=== PATIENT | male | born 1945 | race Two or more races ===

== ENCOUNTER 2017-06-03 18:32 | Inpatient (IN) | payer OTHER ==
[~2017-06-03] VITALS: Ht 172.7 cm; Wt 78.6 kg
[2017-06-03] MEDS ORDERED: ACETAMINOPHEN 500 MG TAB PO ONE (18:45)
[2017-06-03 19:31] LABS: Albumin 3.6 g/dL (3.4-5.0); Anion Gap 8 (5-15); BUN/Creatinine Ratio 12.1; Blood Urea Nitrogen 26 mg/dL (7-18); Calcium 8.2 mg/dL (8.5-10.1); Carbon Dioxide 20 mmol/L (21-32); Chloride 109 mmol/L (98-107); GFR African American 39 mL/min; GFR Non-African American 33 mL/min; Glucose 291 mg/dL (74-106); Potassium 3.9 mmol/L (3.5-5.1); Sodium 137 mmol/L (136-145)
[2017-06-03 19:34] LABS: Basophils # (auto) 0 uL; Basophils % (auto) 0.5 % (0.0-2.0); Eosinophils # (auto) 0.1 uL; Eosinophils % (auto) 1.4 % (0.0-7.0); Hematocrit 47.6 % (41.0-53.0); Lymphocytes # (auto) 0.6 uL; Lymphocytes % (auto) 9.5 % (10.0-50.0); Mean Corpuscular Hemoglobin 31.1 pg (28.0-32.0); Mean Corpuscular Hgb Conc. 33.6 g/dL (32.0-36.0); Mean Corpuscular Volume 92.5 fL (80.0-100.0); Monocytes # (auto) 0.8 uL; Monocytes % (auto) 11.3 % (0.0-12.0); Neutrophils # (auto) 5.2 uL; Neutrophils % (auto) 77.3 % (37.0-80.0); Nucleated Red Blood Cells % 0.1 %; Platelet Count (auto) 154 10^3/uL (140-450); Red Blood Cells 5.15 10^6/uL (4.5-5.90); White Blood Cell 6.7 10^3/uL (4.4-10.8)
[2017-06-03 19:44] LABS: Alanine Aminotransferase 57 U/L (16-61); Alkaline Phosphatase 154 U/L (45-117); Aspartate Aminotransferase 29 U/L (15-37); Bilirubin, Total 0.7 mg/dL (0.2-1.0); Total Protein 7.2 g/dL (6.4-8.2)
[2017-06-03] MEDS ORDERED: SODIUM CHLORIDE 0.9% 1,000 ML IV ONE ×2 (20:24)
[2017-06-03 21:16] LABS: Urine Bacteria NONE SEEN /hpf (None Seen); Urine Blood 1+ /uL (Negative); Urine Mucus FEW (None Seen); Urine Specific Gravity 1.027 (1.001-1.035); Urine WBC 5 /hpf (0 - 3)
[2017-06-04] MEDS ORDERED: IBUPROFEN 600 MG TAB PO ONE (00:15)
[2017-06-04] MEDS ORDERED: SODIUM CHLORIDE 0.9% 1,000 ML IV SCH (00:21)
[2017-06-04] MEDS ORDERED: MORPHINE SULFATE 4 MG/ML SYR/VIAL IV PRN (00:30)
[2017-06-04] MEDS ORDERED: DEXTROSE (50%) 50ML SYRG IV PRN (00:30)
[2017-06-04] MEDS ORDERED: OSELTAMIVIR 75 MG CAP PO ONE (00:30)
[2017-06-04] MEDS ORDERED: ONDANSETRON HCL 4 MG/2 ML VIAL IV PRN (00:30)
[2017-06-04] MEDS ORDERED: cefTRIAXone 1GM/10ml IVPUSH 10 ML IV ONE (00:30)
[2017-06-04] MEDS ORDERED: HYDROcodone-ACET 5/325MG TAB PO PRN (00:30)
[2017-06-04] MEDS ORDERED: NITROGLYCERIN 0.4 MG SL TAB SL PRN (00:30)
[2017-06-04] MEDS ORDERED: SODIUM CHLORIDE 0.9% 500 ML IV ONE (03:30)
[2017-06-04] MEDS: ACCU-CHEK COMFORT CURVE STRIP VI SCH ×4 (06:06→23:40)
[2017-06-04] MEDS: InsuLIN REG 1unit/0.01ml Soln (100units/ml) SC SCH ×4 (06:08→23:41)
[2017-06-04] MEDS: ACETAMINOPHEN 325 MG TAB PO PRN ×3 (07:46→21:37)
[2017-06-04] MEDS: ENOXAPARIN SOD 30 MG/0.3 ML SYRINGE SC SCH (10:00)
[2017-06-04] MEDS: OSELTAMIVIR 75 MG CAP PO SCH (10:00)
[2017-06-04] MEDS: PANTOPRAZOLE 40 MG TAB PO SCH (10:00)
[2017-06-04] MEDS: SODIUM CHLORIDE 0.9% 1,000 ML IV SCH ×2 (13:54→21:00)
[2017-06-04 17:00] VITALS: BP 119/72
[2017-06-04 22:00] VITALS: BP 126/69
[2017-06-04] MEDS ORDERED: cefTRIAXone 1GM/10ml IVPUSH 10 ML IV SCH (22:00)
[2017-06-05 04:50] VITALS: BP 134/75
[2017-06-05 05:50] LABS: Basophils # (auto) 0 uL; Basophils % (auto) 0.7 % (0.0-2.0); Eosinophils # (auto) 0.1 uL; Hematocrit 44.5 % (41.0-53.0); Hemoglobin 15.1 g/dL (13.5-17.5); Lymphocytes # (auto) 1.5 uL; Lymphocytes % (auto) 33.1 % (10.0-50.0); Mean Corpuscular Hemoglobin 31.3 pg (28.0-32.0); Monocytes # (auto) 0.7 uL; Monocytes % (auto) 14.9 % (0.0-12.0); Neutrophils # (auto) 2.2 uL; Neutrophils % (auto) 48.3 % (37.0-80.0); Nucleated Red Blood Cells % 0.1 %; Platelet Count (auto) 134 10^3/uL (140-450); Red Blood Cells 4.84 10^6/uL (4.5-5.90); Red Cell Distribution Width 13.7 % (11.8-14.3); White Blood Cell 4.6 10^3/uL (4.4-10.8)
[2017-06-05 05:58] LABS: Albumin 2.8 g/dL (3.4-5.0); Bilirubin, Total 0.4 mg/dL (0.2-1.0); Calcium 7.8 mg/dL (8.5-10.1); Potassium 3.7 mmol/L (3.5-5.1); Total Protein 6.5 g/dL (6.4-8.2)
[2017-06-05] MEDS: InsuLIN REG 1unit/0.01ml Soln (100units/ml) SC SCH ×2 (06:00→12:24)
[2017-06-05] MEDS: ACCU-CHEK COMFORT CURVE STRIP VI SCH ×2 (06:19→12:24)
[2017-06-05] MEDS: SODIUM CHLORIDE 0.9% 1,000 ML IV SCH ×2 (06:19→12:49)
[2017-06-05 08:41] VITALS: BP 165/89
[2017-06-05] MEDS: OSELTAMIVIR 75 MG CAP PO SCH (09:13)
[2017-06-05] MEDS: ENOXAPARIN SOD 30 MG/0.3 ML SYRINGE SC SCH (09:13)
[2017-06-05] MEDS: PANTOPRAZOLE 40 MG TAB PO SCH (09:13)
[2017-06-05 11:48] VITALS: BP 142/88
[2017-06-05 16:24] VITALS: BP 148/77
[2017-06-05 16:44] VITALS: BP 148/77
[2017-06-06 08:00] VITALS: BP 124/64
== END 2017-06-05 17:55 | disposition home or self-care (01) | DRG 637 ==
LOC: ER 18:42 → TELE 18:43 → TELE-CENTR 06-04 16:04
PROVIDERS: ADMIT Nurse Practitioner; ATTEND Family Medicine
DX: E11.65 Type 2 diabetes mellitus with hyperglycemia (principal); G93.41 Metabolic encephalopathy; N17.0 Acute kidney failure with tubular necrosis; N39.0 Urinary tract infection, site not specified; N18.3 Chronic kidney disease, stage 3 (moderate); J11.1 Influenza due to unidentified influenza virus with other respiratory manifestations; N40.0 Benign prostatic hyperplasia without lower urinary tract symptoms; Z79.899 Other long term (current) drug therapy; E86.0 Dehydration
CPT/HCPCS: 36415; 70450; 71045; 71101; 80053; 81001; 82962; 83036; 83605; 83930; 84484; 85025; 87040; 87400; 93005; 96361; 96374; J1815

== ENCOUNTER 2018-09-05 18:27 | Emergency (ER) | payer MEDICARE ==
[~2018-09-05] VITALS: Ht 170.2 cm; Wt 72.6 kg
[~2018-09-05 18:27] MED LIST: AMLO5TAB13 PO; CLOP75TA28 PO; LEVEMIR SC
[2018-09-05 18:48] VITALS: BP 97/59
== END 2018-09-05 21:16 | disposition left against medical advice (07) ==
LOC: ER 18:28
DX: T63.441A Toxic effect of venom of bees, accidental (unintentional), initial encounter (principal); Z53.21 Procedure and treatment not carried out due to patient leaving prior to being seen by health care provider

== ENCOUNTER 2018-12-24 21:29 | Emergency (ER) | payer MEDICARE ==
[~2018-12-24] VITALS: Ht 167.6 cm; Wt 72.6 kg
[~2018-12-24 21:29] MED LIST changes: -AMLO5TAB13 PO; +AMLO5TAB15 PO
[2018-12-24 22:41] VITALS: BP 135/81
[2018-12-24] MEDS ORDERED: cefTRIAXone SOD 1,000 MG VL IM ONE (22:45)
[2018-12-24] MEDS ORDERED: TETANUS-DIPTH-ACEL PERTUSSIS 0.5ML SYRG IM ONE (22:45)
[2018-12-24] MEDS ORDERED: LIDOCAINE 1% HCL (LOCAL ANESTH.) INJ 20ML MDV IJ ONE (23:00)
== END 2018-12-24 23:11 | disposition home or self-care (01) ==
LOC: ER 21:30
DX: S41.151A Open bite of right upper arm, initial encounter (principal); S61.259A Open bite of unspecified finger without damage to nail, initial encounter; E11.9 Type 2 diabetes mellitus without complications; E78.00 Pure hypercholesterolemia, unspecified; Z79.4 Long term (current) use of insulin; Z79.01 Long term (current) use of anticoagulants; Z79.899 Other long term (current) drug therapy; W50.3XXA Accidental bite by another person, initial encounter; Y93.89 Activity, other specified; Y92.89 Other specified places as the place of occurrence of the external cause; Y99.8 Other external cause status
CPT/HCPCS: 82962; 90471; 90715; 96372; 99283; J0696; J2001

== ENCOUNTER 2020-06-18 23:52 | Emergency (ER) | payer MEDICARE ==
[~2020-06-18] VITALS: Ht 167.6 cm; Wt 68.0 kg
[~2020-06-18 23:52] MED LIST changes: +AMLO-489 PO; -AMLO5TAB15 PO
[2020-06-19 01:27] LABS: Basophils # (auto) 0.1 10 ^3/uL (0-0.2); Basophils % (auto) 1.1 % (0.0-2.0); Eosinophils # (auto) 0.1 10 ^3/uL (0-0.8); Hematocrit 44.9 % (41.0-53.0); Hemoglobin 15.2 g/dL (13.5-17.5); Lymphocytes # (auto) 1.4 10 ^3/uL (0.4-5.4); Lymphocytes % (auto) 22.1 % (10.0-50.0); Mean Corpuscular Hemoglobin 30.7 pg (28.0-32.0); Mean Corpuscular Volume 90.4 fL (80.0-100.0); Monocytes # (auto) 0.5 10 ^3/uL (0-1.3); Monocytes % (auto) 8.3 % (0.0-12.0); Neutrophils # (auto) 4.4 10 ^3/uL (1.6-8.6); Neutrophils % (auto) 67.5 % (37.0-80.0); Nucleated Red Blood Cells % 0.1 %; Platelet Count (auto) 186 10^3/uL (140-450); Red Blood Cells 4.96 10^6/uL (4.5-5.90); Red Cell Distribution Width 13.2 % (11.8-14.3); White Blood Cell 6.5 10^3/uL (4.4-10.8)
[2020-06-19 01:29] LABS: Urine Bacteria FEW /hpf (None Seen); Urine Blood Negative /uL (Negative); Urine Hyaline Cast FEW /lpf (0 - 2); Urine Specific Gravity 1.009 (1.001-1.035); Urine WBC 1 /hpf (0 - 3)
[2020-06-19 01:42] LABS: Amphetamine Screen, Urine NEGATIVE (NEGATIVE); Barbiturate Scree,Urine NEGATIVE (NEGATIVE); Benzodiazephine Screen, Urine NEGATIVE (NEGATIVE); Cannabinoid Screen, Urine POSITIVE (NEGATIVE); Cocaine Screen, Urine NEGATIVE (NEGATIVE); Opiate Scree,Urine NEGATIVE (NEGATIVE); Phencyclidine Screen, Urine NEGATIVE (NEGATIVE)
[2020-06-19 01:48] LABS: Alanine Aminotransferase 51 U/L (16-61); Albumin 3.6 g/dL (3.4-5.0); Anion Gap 7 (5-15); Aspartate Aminotransferase 19 U/L (15-37); BUN/Creatinine Ratio 12.7; Blood Urea Nitrogen 25 mg/dL (7-18); Calcium 8.7 mg/dL (8.5-10.1); Carbon Dioxide 25 mmol/L (21-32); Chloride 110 mmol/L (98-107); GFR African American 43 mL/min; GFR Non-African American 36 mL/min; Glucose 140 mg/dL (74-106); Magnesium 2.3 mg/dL (1.6-2.6); Potassium 4.1 mmol/L (3.5-5.1); Sodium 142 mmol/L (136-145)
[2020-06-19 01:58] LABS: Alkaline Phosphatase 111 U/L (45-117); Bilirubin, Total 0.8 mg/dL (0.2-1.0)
[2020-06-20] MEDS ORDERED: LORazepam 2MG/ML-1ML VIAL IV ONE (09:15)
[2020-06-21] MEDS ORDERED: LORazepam 2MG/ML-1ML VIAL ONE (03:46)
[2020-06-21] MEDS ORDERED: LORazepam 2MG/ML-1ML VIAL IV ONE (04:15)
[2020-06-22] MEDS ORDERED: HALOPERIDOL LACTATE 5 MG/ML INJ VIAL IM ONE (08:15)
[2020-06-22 15:30] VITALS: BP 158/92
== END 2020-06-22 17:25 | disposition home or self-care (01) ==
LOC: EDBD 23:52 → ER 23:54
DX: F10.97 Alcohol use, unspecified with alcohol-induced persisting dementia (principal); E11.9 Type 2 diabetes mellitus without complications; E78.5 Hyperlipidemia, unspecified; Z79.899 Other long term (current) drug therapy; Z20.822 Contact with and (suspected) exposure to COVID-19
CPT/HCPCS: 36415; 70450; 71045; 80053; 80307; 80320; 81001; 82010; 82962; 83605; 83735; 84484; 85025; 87040; 87426; 93005; 96372; 96374; 96376; 99285; J1630; J2060